=== PATIENT | male | born 1970 ===

== ENCOUNTER 2018-11-25 09:24 | Day surgery (SDC) | payer BC ==
[~2018-11-25] VITALS: Ht 170.2 cm; Wt 60.3 kg
[2018-11-25] VITALS (11 sets, daily range): BP systolic 95–110; BP diastolic 56–71
[~2018-11-25 09:24] MED LIST: LR 1000ml 1,000 ML IVLG SCH
[2018-11-25] MEDS ORDERED: DiphenhydrAMINE 50mg/ml Inj IVP PRN (09:45)
[2018-11-25] MEDS ORDERED: LR 1000ml 1,000 ML IVLG SCH (09:45)
[2018-11-25] MEDS ORDERED: fentaNYL 100 mcg/2 mL IV PRN (09:45)
[2018-11-25] MEDS ORDERED: Atropine Inj 1mg/10ml Syr IV PRN (09:45)
[2018-11-25] MEDS ORDERED: Midazolam 2mg/2ml Inj IVP PRN (09:45)
[2018-11-25] MEDS ORDERED: NKM (09:56)
--- NOTE | 2018-11-25 10:07 | Anethesia Preoperative Eval ---
Anesthesia Pre-op PMH/ROS General Date of Evaluation: Nov 25, 2018 Time of Evaluation: 10:06 Anesthesiologist: sean ASA Score: ASA 2 Mallampati Score Class I : Soft palate, uvula, fauces, pillars visible Class II: Soft palate, uvula, fauces visible Class III: Soft palate, base of uvula visible Class IV: Only hard plate visible Mallampati Classification: Class II Surgeon: gorge Diagnosis: colon polyps, colon screening, fam hx/o colon cancer Surgical Procedure: colonoscopy Anesthesia History: none Social History: smoking - nonsmoker Family History: no anesthesia problems Allergies: Coded Allergies: No Known Allergies (Unverified , 11/25/18) Medications: see eMAR Patient NPO?: Yes Past Medical History Cardiovascular: Reports: arrhythmia - sinus bradycardia Musculoskeletal/Integumentary: Reports: other PSxH Narrative: left knee arthroscopy Anesthesia Pre-op Phys. Exam Physician Exam Last Vital Signs Date Time Temp Pulse Resp B/P (MAP) Pulse Ox O2 Delivery O2 Flow Rate FiO2 11/25/18 10:03 97.3 59 18 110/70 100 Room Air Constitutional: NAD Neurologic: CN 2-12 intact Cardiovascular: RRR Respiratory: CTA Gastrointestinal: S/NT/ND Airway Exam Mallampati Score: Class II MO: full Neck: flexible TMD: 2fb ROM: full Anesthesia Pre-op A/P Risk Assessment & Plan Assessment: asa2 Plan: mac Status Change Before Surgery: No Pre-Antibiotics Drug: Asuncion Alvarez MD Nov 25, 2018 10:07
[2018-11-25] MEDS ORDERED: LR 1000ml ONE (11:00)
[2018-11-25] MEDS ORDERED: Lidocaine 1% MPF 10mg/ml 5ml ONE (11:00)
[2018-11-25] MEDS ORDERED: Propofol 200mg/20ml IV ONE (11:00)
--- NOTE | 2018-11-25 11:07 | Short Stay Surgery H&P ---
History of Present Illness History of Present Illness Chief Complaint See H&P HPI Lan Urena Marika is a 48 year old male who was admitted on for Hx Of Malignant Neoplasm Of Digestive Organ Patient History Allergies: Coded Allergies: No Known Allergies (Unverified , 11/25/18) Medication History Scheduled No Known Medications* (NKM - No Known Medications*), 0 ., (Reported) Physical Exam Vital Signs Last Vital Signs Date Time Temp Pulse Resp B/P (MAP) Pulse Ox O2 Delivery O2 Flow Rate FiO2 11/25/18 10:03 97.3 59 18 110/70 100 Room Air Plan Attestation Are the patient's medical conditions optimized for surgery? Keara Gallardo MD Nov 25, 2018 11:07
--- NOTE | 2018-11-25 11:07 | Pre-Procedure Note/Attestation ---
Pre-Procedure Note/Attestation Complete Prior to Procedure Planned Procedure: not applicable Procedure Narrative: colon Indications for Procedure Pre-Operative Diagnosis: h/o colon polyp FH of colon CA Attestation I attest that I discussed the nature of the procedure; its benefits; risks and complications; and alternatives (and the risks and benefits of such alternatives ), prior to the procedure, with the patient (or the patient's legal graphic art sales representative). I attest that, if there was a reasonable possibility of needing a blood transfusion, the patient (or the patient's legal graphic art sales representative) was given the [facility] standardized written summary, pursuant to the [place] Blood Safety Act ([place] Health and Safety Code # 1645, as amended). I attest that I re-evaluated the patient just prior to the surgery and that there has been no change in the patient's H&P, except as documented below: Keara Gallardo MD Nov 25, 2018 11:07
--- NOTE | 2018-11-25 11:45 | Endoscopy Procedure Note ---
Endoscopy Procedure Note General Indication for Procedure: FH of CA, h/o polyp Procedures Performed: colonoscopy Operative Findings/Diagnosis: Rhoids (I&E) Specimen: yes Pt Tolerated Procedure Well: Yes Estimated Blood Loss: none Anesthesia Anesthesiologist: zheng long Anesthesia: MAC Medications Medication Given: see anesthesia record Inserted Devices Implant(s) used?: No GI Core Measures 50 yrs or older w/o bx or poly: Not Applicable 10yrs. F/U recommended: Not Applicable If not recommended, why?: Keara Gallardo MD Nov 25, 2018 11:45
--- NOTE | 2018-11-25 11:46 | Brief Operative Note ---
Immediate Post Operative Note Operative Note Chief Complaint: FH of Ca, Personal h/o polyp Pre-op Diagnosis: h/o colon polyp FH of colon CA Procedure: colon Post-op Diagnosis: Rhoids (I&E) Surgeon: gorge Anesthesiologist: zheng long Anesthesia: moderate sedation Specimen: none Complications: none Condition: stable Fluids: recorded Estimated Blood Loss: none Drains: none Implant(s) used?: No Keara Gallardo MD Nov 25, 2018 11:46
--- NOTE | 2018-11-25 12:17 | Immediate Post-Op Evaluation ---
Immediate Post-Op Evalulation Immediate Post-Op Evalulation Procedure: colonoscopy w/bx Date of Evaluation: Nov 25, 2018 Time of Evaluation: 11:54 IV Fluids: 600ml lr Blood Products: none Estimated Blood Loss: negligible Blood Pressure Systolic: 99 Blood Pressure Diastolic: 56 Pulse Rate: 61 Respiratory Rate: 18 O2 Sat by Pulse Oximetry: 100 Temperature (Fahrenheit): 98.1 Pain Score (1-10): 0 Nausea: No Vomiting: No Complications none Patient Status: awake, reacts, patent Hydration Status: adequate Drug: Asuncion Alvarez MD Nov 25, 2018 12:17
--- NOTE | 2018-11-25 12:19 | 48 Hour Post Anesthesia Eval ---
Post Anesthesia Evaluation Procedure: colonoscopy w/bx Date of Evaluation: Nov 25, 2018 Time of Evaluation: 11:56 Blood Pressure Systolic: 101 0: 60 Pulse Rate: 60 Respiratory Rate: 18 Temperature (Fahrenheit): 98.1 O2 Sat by Pulse Oximetry: 100 Airway: patent Nausea: No Vomiting: No Pain Intensity: 0 Hydration Status: adequate Cardiopulmonary Status: stable Mental Status/LOC: patient returned to baseline Post-Anesthesia Complications: none Follow-up care needed: N/A Asuncion Ochoa MD Nov 25, 2018 12:19
--- NOTE | 2018-11-26 22:00 | Operative Note - Dictated ---
DATE OF OPERATION: 11/25/2018 GASTROENTEROLOGY PROCEDURE REPORT SURGEON: Keara Gallardo M.D. PROCEDURE: Colonoscopy. PRE-ENDOSCOPIC DIAGNOSES: 1. Family history of colon cancer. 2. History of colonic polyps. POST-ENDOSCOPIC DIAGNOSES: 1. Internal and external hemorrhoids. 2. No evidence of polyps or masses on this examination. DESCRIPTION OF PROCEDURE: The procedure, its risks, indications, alternatives, and possible complications including anesthesia complications were explained to the patient and informed consent was obtained. The patient was then sedated in the left lateral decubitus position and a rectal exam was done. The colonoscope was then introduced in the rectum and advanced to cecum. The cecum was identified by the appearance of the ileocecal valve. The colonoscope was then gradually withdrawn and the mucosa examined carefully. Examination of the colonic mucosa revealed no polyps or masses. In the rectal area, there were internal hemorrhoids as well as external hemorrhoids identified. The colonoscope was removed and the patient was sent to the recovery in good condition. COMPLICATIONS: None. RECOMMENDATIONS: 1. High-fiber diet. 2. Follow up with primary physician. Keara Gallardo M.D. DR: SANTA JOB#: [id number] CC: Keara Gallardo M.D.; Fax#: [phone]
== END 2018-11-25 13:05 | disposition home or self-care (01) ==
LOC: GAS 09:24
DX: K64.8 Other hemorrhoids (principal); K64.4 Residual hemorrhoidal skin tags; Z86.010 Personal history of colon polyps; Z80.0 Family history of malignant neoplasm of digestive organs
CPT/HCPCS: 45378; J2704; 94003; 94150